=== PATIENT | male | born 1975 | race Caucasian/White ===

== ENCOUNTER 2024-12-14 10:31 | Emergency (ER) | payer SELFPAY ==
[2024-12-14] MEDS: Lidocaine 4% 1 each Patch TOP ONE (11:09)
[2024-12-14] MEDS: Ketorolac 30 MG/ML SDV IM ONE (11:09)
[2024-12-14] MEDS: Acetaminophen 325 MG Tab PO ONE (11:11)
[2024-12-14] MEDS: Cyclobenzaprine 10 MG Tab PO ONE (11:56)
== END 2024-12-14 12:52 | disposition home or self-care (01) ==
LOC: MW.ED 10:31
DX: R10.9 Unspecified abdominal pain (principal); I10 Essential (primary) hypertension; Z88.2 Allergy status to sulfonamides; Z79.899 Other long term (current) drug therapy; Z75.8 Other problems related to medical facilities and other health care
CPT/HCPCS: 73501; 96372; 99283; A9270; J1885

== ENCOUNTER 2025-07-24 10:19 | Day surgery (SDC) | payer BC ==
[2025-07-24] MEDS: Lactated Ringers 1,000 ML IV SCH (10:45)
[2025-07-24] MEDS ORDERED: propofoL 500 MG/50 ML 50 ML ONE (10:49)
[2025-07-24] MEDS ORDERED: dexmedeTOMIDine HCl 200 MCG/2 ML SDV ONE (11:43)
== END 2025-07-24 12:53 | disposition home or self-care (01) ==
LOC: MW.SDS 10:19
PROVIDERS: ATTEND Surgery
DX: K27.9 Peptic ulcer, site unspecified, unspecified as acute or chronic, without hemorrhage or perforation (principal); K29.70 Gastritis, unspecified, without bleeding; K63.89 Other specified diseases of intestine; K42.9 Umbilical hernia without obstruction or gangrene; Z88.2 Allergy status to sulfonamides; Z88.8 Allergy status to other drugs, medicaments and biological substances; Z79.899 Other long term (current) drug therapy
CPT/HCPCS: 43239; 45380; J2704; J7120; J7999; 00813; J2371

== ENCOUNTER 2025-08-07 07:46 | Day surgery (SDC) | payer BC ==
[~2025-08-07 07:46] MED LIST: Midazolam 1 MG/ML 2 ML SDV ONE; Propofol 200 MG/20 ML SDV ONE; Ropivacaine 0.5% 5 MG/ML 30 ML SDV ONE; Sodium Chloride 0.9% 10 ML Syringe FLUSH PRN; Sodium Chloride 0.9% 2.5 ML Syringe FLUSH PRN; ceFAZolin 2 GM in Water For Injection, Sterile 20 ML IVPUSH ONE; dexmedeTOMIDine HCl 200 MCG/2 ML SDV ONE; fentaNYL 100 MCG/2 ML SDV ONE
[2025-08-07] MEDS ORDERED: Albuterol 0.083% 2.5 MG/3 ML Neb Soln NEB PRN (08:00)
[2025-08-07] MEDS ORDERED: Ondansetron 4 MG/2 ML SDV IVPUSH PRN (08:00)
[2025-08-07] MEDS ORDERED: Naloxone 0.4 MG/ML SDV IVPUSH PRN (08:00)
[2025-08-07] MEDS: Lactated Ringers 1,000 ML IV SCH (08:15)
[2025-08-07] MEDS ORDERED: Dexamethasone 4 MG/ML 5 ML MDV ONE (09:25)
[2025-08-07] MEDS ORDERED: Ondansetron 4 MG/2 ML SDV ONE (09:25)
[2025-08-07] MEDS ORDERED: Propofol 200 MG/20 ML SDV ONE (09:57)
[2025-08-07] MEDS: fentaNYL 50 MCG/ML SDV IVPUSH PRN (11:15)
== END 2025-08-07 13:00 | disposition home or self-care (01) ==
LOC: MW.SDS 07:46
PROVIDERS: ATTEND Surgery
DX: K42.9 Umbilical hernia without obstruction or gangrene (principal); K92.1 Melena; I10 Essential (primary) hypertension; F17.210 Nicotine dependence, cigarettes, uncomplicated; Z88.2 Allergy status to sulfonamides; Z79.899 Other long term (current) drug therapy
CPT/HCPCS: 49591; 64488; A9270; J0665; J0690; J1100; J1171; J2003; J2250; J2405; J2704; J2795; J3010; J7120; J7999; 00752; C1781; J2371; J3490